=== PATIENT | male | born 1970 ===

== ENCOUNTER 2025-06-03 12:55 | Emergency (ER) | payer OTHER ==
[~2025-06-03] VITALS: Ht 172.7 cm; Wt 97.5 kg
[2025-06-03] MEDS ORDERED: Dexamethasone Sod Phos 10 MG/ML 1ML VIAL PO ONE (13:35)
[2025-06-03] MEDS ORDERED: Lidocaine 4% 1 Patch TOP ONE (14:50)
[2025-06-03] MEDS ORDERED: OXAYDO5 M1 PO (15:19)
[2025-06-03] MEDS ORDERED: TIZA4 PO (15:19)
[2025-06-03] MEDS ORDERED: PRED20 PO (15:19)
== END 2025-06-03 15:30 | disposition home or self-care (01) ==
LOC: ER 12:55
DX: M54.17 Radiculopathy, lumbosacral region (principal); M19.90 Unspecified osteoarthritis, unspecified site
CPT/HCPCS: 99283; A9270; J1100